=== PATIENT | female | born 1955 | race Caucasian/White ===

== ENCOUNTER 2024-03-04 12:51 | Outpatient (OUT) | payer MEDICARE, SELFPAY ==
--- NOTE | 2024-03-04 12:55 | MM_ITS ---
Patient Name: HERNAN BURNS MR#: [id number] : 1955 Exam Date: 03/04/2024 Ordering Doctor: ZOILA CATHERINE . RADIOLOGY REPORT PROCEDURE: MM TOMOSYNTHESIS SCREENING BI COMPARISON: MG MAMM SCREEN BIGG W CAD, 10/08/2017. MG MAMM SCREEN BIGG W CAD, 04/07/2019. INDICATIONS: Screening for malignant neoplasm Calculator Name NCI Breast Cancer Risk Assessment Tool 5 Year Breast Cancer Risk 2.30% Lifetime Breast Cancer Risk 8.00% Personal Breast Cancer No Personal Ovarian Cancer No Treatments None Family Cancers Aunt-paternal with breast cancer at age 50; Uncle-paternal with esophageal cancer at age 80; Cousin-paternal with bone cancer at age 50. LOCATION: [facility] BREAST COMPOSITION: There are scattered areas of fibroglandular density. FINDINGS: DIAGNOSTIC CATEGORY 1--NEGATIVE. NO CHANGE FROM COMPARISON ASSESSMENT. Scattered benign-appearing calcifications are present. Scattered benign-appearing lymph nodes are present. RIGHT BREAST: No significant suspicious finding. Linear scar marker. Micro clip marker upper outer quadrant, posterior breast, stable LEFT BREAST: No significant suspicious finding. RECOMMENDATIONS: ROUTINE MAMMOGRAM AND CLINICAL EVALUATION IN 12 MONTHS. PLEASE NOTE: A NORMAL MAMMOGRAM DOES NOT EXCLUDE THE POSSIBILITY OF BREAST CANCER. A CLINICALLY SUSPICIOUS PALPABLE LUMP SHOULD BE BIOPSIED. Dictated by: Parker Méndez MD on 03/04/2024 at 14:00 Approved by: Parker Méndez MD on 03/04/2024 at 14:02
--- NOTE | 2024-03-04 12:55 | XR_ITS ---
[address] [address] Patient Name: HERNAN BURNS MRN: [id number] date: 1955 Sex: F Assigned Patient Location: [facility] Current Patient Location: Accession/Order Number: [id number] Exam Date: 03/04/2024 13:12 Report Date: 03/05/2024 04:50 At the request of: ZOILA CATHERINE Procedure: XR DEXA axial skeleton EXAMINATION: XR DEXA axial skeleton HISTORY: Screening COMPARISON: No relevant comparison available. TECHNIQUE: Dual-energy X-ray absorptiometry (DXA) was performed. FINDINGS: SPINE ANALYSIS: Average bone mineral density is 1.381 g/cm2. T-score (standard deviation relative to young adult mean): 1.7 . HIP ANALYSIS: Lowest bone mineral density is within the left femoral neck, 1.013 g/cm2. T-score (standard deviation relative to young adult mean): -0.2 . XR/XR DEXA axial skeleton IMPRESSION: World Health Organization Classification: Normal - Low Fracture Risk FRAX: Cannot be calculated. Pharmacologic treatment recommendations * No uniform recommendation applies to all patients. Management plans must be individualized. * Consider initiating pharmacologic treatment in postmenopausal women and men >= 50 years of age who have the following: Primary fracture prevention: * T-score <= - 2.5 at the femoral neck, total hip, lumbar spine, 33% radius (some uncertainty with existing data) by DXA. * Low bone mass (osteopenia: T-score between - 1.0 and - 2.5) at the femoral neck or total hip by DXA with a 10-year hip fracture risk >= 3% or a 10-year major osteoporosis-related fracture risk >= 20% (i.e., clinical vertebral, hip, forearm, or proximal humerus) based on the US-adapted FRAXregistered model. Secondary fracture prevention: * Fracture of the hip or vertebra regardless of BMD [4, 5]. * Fracture of proximal humerus, pelvis, or distal forearm in persons with low bone mass (osteopenia: T-score between - 1.0 and - 2.5). The decision to treat should be individualized in persons with a fracture of the proximal humerus, pelvis, or distal forearm who do not have osteopenia or low BMD [12, 13]. Martinez MS, Nicho SL, Aaron KL, Cheli EM, Karel KG, AJ, Dakota ES. The clinician's guide to prevention and treatment of osteoporosis. Osteoporos Int. 2021;33(10):0320-3266. doi: 10.1007/z27605-562-31003-j. Epub 2021Aug 17. Erratum in: Osteoporos Int. 2021Nov 16;: PMID: 44286747; PMCID: [id number]. Electronically authenticated by: SHAHZAD LADD Date: 03/05/2024 04:50
== END 2024-03-04 12:52 | disposition home or self-care (01) ==
LOC: MAMMO 12:51
PROVIDERS: PCP Nurse Practitioner; Visit Provider Nurse Practitioner
DX: Z12.31 Encounter for screening mammogram for malignant neoplasm of breast (principal); M81.0 Age-related osteoporosis without current pathological fracture; Z80.3 Family history of malignant neoplasm of breast; Z80.0 Family history of malignant neoplasm of digestive organs; Z80.8 Family history of malignant neoplasm of other organs or systems
CPT/HCPCS: 77063; 77067; 77080

== ENCOUNTER 2025-03-05 13:23 | Outpatient (OUT) | payer MEDICARE, SELFPAY ==
--- NOTE | 2025-03-05 13:55 | MM_ITS ---
Patient Name: HERNAN BURNS MR#: [id number] : 1955 Exam Date: 03/05/2025 Ordering Doctor: ZOILA CATHERINE . RADIOLOGY REPORT PROCEDURE: MM TOMOSYNTHESIS SCREENING BI COMPARISON: MM TOMOSYNTHESIS SCREENING BI, 03/04/2024. MG MAMM SCREEN BIGG W CAD, 04/07/2019. MG MAMM SCREEN BIGG W CAD, 10/08/2017. MAMMO POST BIOPSY RIGHT, 01/14/2013. INDICATIONS: screening for malignant neoplasm Calculator Name [facility] Breast Cancer Risk Assessment Tool 5 Year Breast Cancer Risk 2.30% Lifetime Breast Cancer Risk 7.70% Personal Breast Cancer No Personal Ovarian Cancer No Treatments None Family Cancers Aunt-paternal with breast cancer at age 50; Uncle-paternal with esophageal cancer at age 80; Cousin-paternal with bone cancer at age 50. LOCATION: [facility] BREAST COMPOSITION: There are scattered areas of fibroglandular density. FINDINGS: RIGHT BREAST: No significant suspicious finding. Benign-appearing calcifications are present. LEFT BREAST: No significant suspicious finding. Benign-appearing calcifications are present. DIAGNOSTIC CATEGORY 2--BENIGN FINDING. NO CHANGE FROM COMPARISON. RECOMMENDATIONS: ROUTINE MAMMOGRAM AND CLINICAL EVALUATION IN 12 MONTHS. Dictated by: Michael Brown MD on 03/05/2025 at 15:09 Approved by: Michael Brown MD on 03/05/2025 at 15:18
== END 2025-03-05 13:24 | disposition home or self-care (01) ==
LOC: MAMMO 13:24
PROVIDERS: PCP Nurse Practitioner; Visit Provider Nurse Practitioner
DX: Z12.31 Encounter for screening mammogram for malignant neoplasm of breast (principal); Z80.3 Family history of malignant neoplasm of breast; Z80.8 Family history of malignant neoplasm of other organs or systems
CPT/HCPCS: 77063; 77067

== ENCOUNTER 2025-04-02 12:19 | Outpatient (OUT) | payer MEDICARE, SELFPAY ==
--- OUTSIDE RECORDS SUMMARY | 2025-03-24 11:50 | XMS_ITS | Continuity of Care Document ---
Author Organization [facility] Address [address] [place] [address] Phone Care Team Providers Care Conservation Of Resources Commissioner Name Role Phone Amy Alonso APRN Attending Provider [phone] Marge Nobles NP-C Primary Care Provider Care Teams Patient Care Team Team Status: Active Member Role/Relationship Status Dates Marge Nobles NP-C Primary Care Provider Active Patient Care Team Team Status: Inactive Member Role/Relationship Status Dates Amy Alonso APRN Attending Provider Active S tart: March 24, 2025 End: March 24, 2025Jodestiny Nobles NP-CPrm[facility] Care ProviderActiveStart: March 24, 2025 End: March 24, 2025 Chief Complaint and Reason for Visit Chief Complaint Admit Date Sinus congestion, cough March 24 3:56pm Allergies, Adverse Reactions, Alerts Allergen Type Severity Reaction Last Updated Verified Status acetaminophen Allergy Unknown Anaphylaxis March 24, 2025 4:2 5pm Yes Active oxycodone Allergy Unknown Anaphylaxis March 24, 2025 4:25pm Yes Active Social History Smoking Status Unknown if ever smoked Observation Status Observation Response Date of Response Legal Sex [facility] (finding) [facility] 1954 Medications Medication Status Dose Units Route Directions Qty Days Refills S tart Date Stop Date End Date Reason(s) Instructions Adherence Albuterol Sulfate 90 mcg/actuation HFA aerosol inhaler Active 2 INH INHALATION EVERY 4-6 HOURS as needed for shortness of breath or wheezing 6.7 0December 2024 12:00amComplies with drug therapyDoxycycline Hyclate 100 mg fkbipbnBoxicr199VBWVOmpnv rnaqu0582TcblnbsnMarch 24, 2025 12:00amComplies with drug therapyMethylprednisolone (Medrol (Aristeo)) 4 mg tablets,dose dlroCepscx8ZXyjo package mkfbemvahh756Ayufyizt 3rd, 2025 12:00amPO PER PKG DIRComplies with drug therapy Vital Signs Vital Reading Result Reference Range Collection Date/Time Height 63 [in_i] March 24, 2025 4:19zfEfxqot04.56 kgDecemb2024 4:25pmBody Temperature 98.2 [degF]97.6-99.0[facility]ce[facility] 2024 4:25pmHeart Rate76 /nex47-127Nfbbszgq 3rd, 2025 4:25pmRespiratory rate18 /zot93-41Ubfbqlma 2024 4:25pmOxygen saturation by Pulse dgicvobj12 %95-100[facility] 2024 4:25pmBP Frefqlus076 mm[Hg]100-140Deceb[facility] 2024 4:25pmBP Bloudeoiu64 mm[Hg]60-100Deceb[facility] 2024 4:25pmBMI (Body Mass Index)21.7 kg/m4BuugldluMarch 24, 2025 4:25pm Advance Directives Advance Directive Response Recorded Date/ Time Advance Directives No March 24, 2025 3:52pm Insurance Providers Guarantor Abdirahman Singh Address [address] [facility] [address] [place] [id number] Info.Home Phone: Coverage Status Update:2025 Payer Group Member ID Coverage Type Subscriber Relationship to Subscriber Effective Date Expiration Date MMO Netwk Access Id: [id number] Harmon , M Id: [id number] [address] [address] [place] [id number] Home Phone: Email: [email or web address] HoldingTereseMississippi Baptist Medical Center PFFS Id: [id number] Harmon , M Id: [id number] [address] [address] Home Phone: Email: [email or web address] Encounters Encounter Location(s) Arrival/Admit Date Discharge/Departure Date Discharge/Departure Disposition Provider(s) Departed Physician/ Provider Office Visit -[facility] March 24, 2025 3:56pm March 24, 2025 4:50pm Discharged to home care or self care (routine discharge) Abdirahman Herring SACK REPAIRER
--- NOTE | 2025-04-02 12:26 | XR_ITS ---
The [address] [address] Patient Name: HERNAN BURNS MRN: [id number] date: 1955 Sex: F Assigned Patient Location: [facility] Current Patient Location: [facility] Accession/Order Number: [id number] Exam Date: 04/02/2025 12:35 Report Date: 04/02/2025 13:10 At the request of: ZOILA CATHERINE Procedure: XR chest 2V PA AND LATERAL CHEST: CLINICAL HISTORY: Cough, shortness of breath and wheezing. Nicotine Dependence. COMPARISON: None There is no focal parenchymal consolidation, effusion or pneumothorax. The cardiac, hilar and mediastinal silhouettes are within normal limits. There is no vascular congestion. The visualized bony thorax is intact. There is subtle scoliotic curvature and tiny endplate spurs. A cervical fusion plate is visualized. XR/XR chest 2V IMPRESSION: NO ACUTE CARDIOPULMONARY ABNORMALITY. Impression dictated by: Nikkie Salmon M.D. 04/02/2025 1:10 PM Dictation Location: [facility] HEALTHCARERoller[facility] Electronically authenticated by: [id number] Date: 04/02/2025 13:10
--- OUTSIDE RECORDS SUMMARY | 2025-04-02 12:26 | XMS_ITS | CCD ---
Author Organization [facility] Care Team Providers Care Stock Clipper Name Role Phone PHYSICIAN, DEFAULT Unavailable Unavailable PHYSICIAN, DEFAULT Unavailable Unavailable JACQUI PINEDA Admitting Unavailable JACQUI PINEDA Attending Unavailable JOOÃ MCMILLAN Primary Care Unavailable JAMARI RESTREPO V Consulting Unavailable JACQUI PINEDA Consulting Unavailable Marge Nobles Attending Unavailable Allergies Allergy ClassificationReported Allergen(s)Allergy TypeDate of OnsetReaction(s) Facility (1 source)Acetaminophen / oxyCODONEDrug Xldfasv82-74-7617Hzh[facility] ([facility])Sulfonamides (Antibiotic)Drug allergy (disorder)56-05-1107Lku [facility] Repository (1 source)Acetaminophen / oxyCODONE; Translations: [acetaminophen-oxycodone]Drug Vsvpbbm65-76-2829OyhvdzC[facility] (1 source)sulfa topicals; Translations: [sulfa topicals]Propensity to adverse reactions (disorder)77-92-7276JmqsjfC[facility] (1 source)No Known Medication Allergies; Translations: [No Known Medication Allergies]Propensity to adverse reactions (disorder)[facility] Repository Problems Problem ClassificationProblemDateDocumented DateEpisodic/ChronicOther screening for suspected conditions (not mental disorders or infectious disease) (4 sources)Encounter for screening mammogram for malignant neoplasm of breast; Translations: [ENC SCR MAMMO MALIG NEOPLASM BREAST]Onset: 09-89-0028Qyyhhvrm Residual codes; unclassified (1 source)Family history of malignant neoplasm of breast; Translations: [FAMILY HX MALIG NEOPLASM OF BREAST]Onset: 02-80-7582GykngjcpLknkkvbi codes; unclassified (1 source)Family history of malignant neoplasm of digestive organs; Translations: [FAM HX MALIG NEOPLASM DIGESTIV ORGN]Onset: 26-16-0331Ypvuwemy Residual codes; unclassified (1 source)Family history of malignant neoplasm of other organs or systems; Translations: [FAM HX MALIG NEOPLASM OTH ORGN/SYS]Onset: 97-74-5061Tajfmyri Results Test NameValueInterpretationReference RangeFacilityAmbulatory Visit Summaryon 46-40-4191Lyrdbwsqav Visit SummaryAmbulatory Visit Summary HERNAN BURNS :1955 Visit Date:02/05/2025 Ambulatory Visit Instructions Your Diagnosis Seasonal allergies Breast cancer screening Sinusitis Tobacco use BMI 21.0-21.9, adult Tests Performed MA Mamm Screen w/CAD if perf and 3D Bigg -- Results Pending -- Please visit your patient portal for your results or contact your primary care physician. Your Care Team Attending Physician - Marge Finn Primary Care Physician - Marge Finn Procedures Performed Arthroscopy of knee, section, Partial hysterectomy, Surgery. Discharge Vitals Temperature (Oral) 36.8 ???C Heart Rate (Peripheral) 92 Respiratory Rate 18 Blood Pressure 128/84 Height 163.5 cm Height 64 in Weight 56.2 kg Weight 123.9 lb BMI 21.02 Allergies acetaminophen-oxycodone (Unknown) sulfa topicals (Unknown) Problems Ongoing - Any problem that you are currently receiving treatment for. BMI 21.0-21.9, adult Breast cancer screening Post menopausal syndrome Seasonal allergies Sinusitis Wellness examination Patient Survey You may receive a survey via text or e-mail asking about your office visit. Please share your experience with us by completing your survey. We appreciate your feedback and thank you for choosing us for your care. Patient Portal You may access all of your results and other medical record information on our secure patient portal. If you are not signed up for this yet, please contact [employer] at [phone] to get signed up today. Language Information Language assistance services are available as needed. [facility] Medicine Office/Clinic Noteon 89-55-2866Zhugag Medicine Office/Clinic NoteFasaint joseph's hospital Medicine Office/Clinic Note Chief Complaint Annual Check Up HPI Staff Pt presents today for annual check up. Has declined Medicare Wellness in past. Mammogram 03/04/24 DEXA 03/04/24 No recent labs. [facility]. History of Present Illness pt presents today for annual visit Review of Systems PHQ Score Initial Depression Screen Score: 0 SCORE General: alert, no acute distress ENMT: oral mucosa moist, no pharyngeal erythema or exudate Cardiovascular: regular rate and rhythm, normal peripheral perfusion Respiratory: Lungs CTA, respirations non labored Extremities: no deformity, no trauma Neurological: oriented x 4, LOC appropriate for age, CN II-XII intact, motor strength equal & normal bilaterally, speech normal Physical Exam Vitals & Measurements T: 36.8 ???C(Oral) HR: 92(Peripheral) RR: 18 BP: 128/84 SpO2: 99% HT: 163.5 cm HT: 64 in WT: 56.2 kg WT: 123.9 lb BMI: 21.02 Assessment/Plan 1. Sinusitis (J32.9: Chronic sinusitis, unspecified) pt presents today for 1 year check. she is refusing annual labs. is up to date on dexa scan. mammogram ordered. pt states for about 3 weeks she has had nasal congestion and a cough from post nasal drainage. amoxicillin sent in Ordered: amoxicillin, 500 mg = 1 cap(s), Oral, q12hr, # 14 cap(s), Refills(s) 0, Pharmacy: [facility], 163.5, cm, 02/05/25 15:05:00 EDT, Height/Length Dosing, 56.2, kg, 02/05/25 15:05:00 EDT, Weight Dosing methylPREDNISolone, = 1 packet(s), Oral, As Directed, as directed on package labeling, X 6 day(s), # 21 tab(s), Refills(s) 0, Pharmacy: [facility], 163.5, cm, 02/05/25 15:05:00 EDT, Height/Length Dosing, 56.2, kg, 02/05/25 15:05:00 EDT, Weight Dosing 2. Seasonal allergies (J30.2: Other seasonal allergic rhinitis) medrol dose pack sen tin Ordered: amoxicillin, 500 mg = 1 cap(s), Oral, q12hr, # 14 cap(s), Refills(s) 0, Pharmacy: [facility], 163.5, cm, 02/05/25 15:05:00 EDT, Height/Length Dosing, 56.2, kg, 02/05/25 15:05:00 EDT, Weight Dosing methylPREDNISolone, = 1 packet(s), Oral, As Directed, as directed on package labeling, X 6 day(s), # 21 tab(s), Refills(s) 0, Pharmacy: [facility], 163.5, cm, 02/05/25 15:05:00 EDT, Height/Length Dosing, 56.2, kg, 02/05/25 15:05:00 EDT, Weight Dosing 3. Breast cancer screening (Z12.39: Encounter for other screening for malignant neoplasm of breast) mammogram ordered at [facility] Ordered: amoxicillin, 500 mg = 1 cap(s), Oral, q12hr, # 14 cap(s), Refills(s) 0, Pharmacy: [facility], 163.5, cm, 02/05/25 15:05:00 EDT, Height/Length Dosing, 56.2, kg, 02/05/25 15:05:00 EDT, Weight Dosing methylPREDNISolone, = 1 packet(s), Oral, As Directed, as directed on package labeling, X 6 day(s), # 21 tab(s), Refills(s) 0, Pharmacy: [facility], 163.5, cm, 02/05/25 15:05:00 EDT, Height/Length Dosing, 56.2, kg, 02/05/25 15:05:00 EDT, Weight Dosing MA Mamm Screen w/CAD if perf and 3D Bigg 4. Tobacco use (Z72.0: Tobacco use) consider not smoking Ordered: amoxicillin, 500 mg = 1 cap(s), Oral, q12hr, # 14 cap(s), Refills(s) 0, Pharmacy: [facility], 163.5, cm, 02/05/25 15:05:00 EDT, Height/Length Dosing, 56.2, kg, 02/05/25 15:05:00 EDT, Weight Dosing methylPREDNISolone, = 1 packet(s), Oral, As Directed, as directed on package labeling, X 6 day(s), # 21 tab(s), Refills(s) 0, Pharmacy: [facility], 163.5, cm, 02/05/25 15:05:00 EDT, Height/Length Dosing, 56.2, kg, 02/05/25 15:05:00 EDT, Weight Dosing 5. BMI 21.0-21.9, adult (Z68.21: Body mass index [BMI] 21.0-21.9, adult) BMI educaiton Ordered: amoxicillin, 500 mg = 1 cap(s), Oral, q12hr, # 14 cap(s), Refills(s) 0, Pharmacy: [facility], 163.5, cm, 02/05/25 15:05:00 EDT, Height/Length Dosing, 56.2, kg, 02/05/25 15:05:00 EDT, Weight Dosing methylPREDNISolone, = 1 packet(s), Oral, As Directed, as directed on package labeling, X 6 day(s), # 21 tab(s), Refills(s) 0, Pharmacy: [facility], 163.5, cm, 02/05/25 15:05:00 EDT, Height/Length Dosing, 56.2, kg, 02/05/25 15:05:00 EDT, Weight Dosing Follow-up No qualifying data available Problem List/Past Medical History Ongoing BMI 21.0-21.9, adult Breast cancer screening Post menopausal syndrome Seasonal allergies Sinusitis Wellness examination Historical No qualifying data Procedure/Surgical History Arthroscopy of knee, section, Partial hysterectomy, Surgery. Medications amoxicillin 500 mg Cap, 500 mg= 1 cap(s), Oral, q12hr Medrol 4 mg Tab, 1 packet(s), Oral, As Directed Allergies acetaminophen-oxycodone (Unknown) sulfa topicals (Unknown) Social History Alcohol Never., 01/31/2025 Substance Abuse Never., 01/31/2025 Tobacco 10 or more cigarettes (1/2 pack or more)/day in last 30 days Tobacco Use:. Never Smokeless Tobacco Use:. Cigarettes, Ready to change: No. Household tobacco concerns: No. Yes, 02/05/2025 Family History Acute myocardial infarction: (more content not included)...[facility]Comment [facility]:Result Comment: Electronically Signed By: Marge Finn\.br\Date and Time Signed: 02/05/25 15:26 EDTMG MAMM SCREEN BIGG W CAD on 30-64-6798FA MAMM SCREEN BIGG W CADPatient: HERNAN BURNS Exam Date: 04/07/2019 : 1955 Gender:F Ordering : DR. JACQUI PINEDA . Admission #: [id number] Family : DR JOÃO MCMILLAN M.D. Order #: [id number] CLICK HERE TO VIEW EXAM RADIOLOGY REPORT PROCEDURE: MAMMOGRAM BILATERAL SCREENING DIGITAL WITH COMPUTER AIDED DETECTION COMPARISON: MG MAMM BIGG SCRN W CAD DIG, 02/28/2016. MG MAMM SCREEN BIGG W CAD, 10/08/2017. INDICATIONS: Screening mammography Calculator Name NCI Breast Cancer Risk Assessment Tool 5 Year Breast Cancer Risk 2.10% Lifetime Breast Cancer Risk 9.20% Personal Breast Cancer No Personal Ovarian Cancer No Treatments None Family Cancers Aunt-paternal with breast cancer at age 50; Uncle-paternal with esophageal cancer at age 80; Cousin-paternal with bone cancer at age 50. LOCATION: [facility] BREAST COMPOSITION: Scattered areas fibroglandular density. FINDINGS: DIAGNOSTIC CATEGORY 1--NEGATIVE NO CHANGE FROM COMPARISON ASSESSMENT. Scattered benign-appearing calcifications are present. Scattered benign-appearing lymph nodes are present. RIGHT BREAST: No significant suspicious finding. Stable micro clip marker upper outer quadrant LEFT BREAST: No significant suspicious finding. Stable micro clip marker upper outer quadrant RECOMMENDATIONS: ROUTINE MAMMOGRAM AND CLINICAL EVALUATION IN 12 MONTHS. PLEASE NOTE: A NORMAL MAMMOGRAM DOES NOT EXCLUDE THE POSSIBILITY OF BREAST CANCER. A CLINICALLY SUSPICIOUS PALPABLE LUMP SHOULD BE BIOPSIED. Dictated by: Jamari Restrepo M.D. on 04/07/2019 at 16:06 Approved by: Jamari Restrepo M.D. on 04/07/2019 at 16:07[facility] Encounters Encounter DateEncounter TypeCare ProviderFacilityStart: 02-05-2025 End: 72-42-3927hjnwcovnrjFowb L SchwabFacility:[facility]art: 04-07-2019 End: 07-11-1895Fkztlas encounter procedureANDANDRZEJ MOOREFacility:A1Coufz: 09-18-2017 End: 37-73-2763NqrbyvueyvDOYCJPA PHYSICIANFacility:[facility] Payers DatePayer CategoryPayerPolicy [id number] Summary Purpose Family History No Family History Records FoundNo Family History Records FoundNo Family History Records Found Advance Directives No Advanced Directives Records FoundNo Advanced Directives Records FoundNo Advanced Directives Records Found Additional Source Comments INFORMATION SOURCE (unrecogn ized section and content) DATE CREATED AUTHOR 10/09/2017 [facility] DATE CREATED AUTHOR AUTHOR'S ORGANIZ ATION 04/08/2019 [facility] DATE CREATED AUTHOR AUTHOR'S ORGANIZ ATION 02/06/2025 [facility] FOR RECORDS PERTAINING TO PATIENTS WHO ARE OR HAVE BEEN ENROLLED IN A CHEMICAL DEPENDENCY/SUBSTANCEABUSE PROGRAM, SOME INFORMATION MAY BE OMITTED. This clinical summary was aggregated from multiple sources. Caution should be exercised in using it in the provision of clinical care. This summary normalizes information from multiple sources, and as a consequence, information in this document may materially change the coding, format and clinical context of patient data. In addition, data may be omitted in some cases. CLINICAL DECISIONS SHOULD BE BASED ON THE PRIMARY CLINICAL RECORDS. [facility]. provides no warranty or guarantee of the accuracy or completeness of information in this document.
== END 2025-04-02 12:20 | disposition home or self-care (01) ==
LOC: RAD 12:23
PROVIDERS: PCP Nurse Practitioner; Visit Provider Nurse Practitioner
DX: J06.9 Acute upper respiratory infection, unspecified (principal); F17.200 Nicotine dependence, unspecified, uncomplicated
CPT/HCPCS: 71046